=== PATIENT | male | born 1965 | race Caucasian/White ===

== ENCOUNTER 2020-09-03 17:48 | Inpatient (IN) | payer SELFPAY ==
[~2020-09-03] VITALS: Ht 165.1 cm; Wt 66.3 kg
[2020-09-03 17:57] VITALS: Ht 165.1 cm; Wt 66.3 kg
[2020-09-03 19:09] LABS: BASOPHIL % 0.3 % (0.2-1.5); PLATELET COUNT 153 x10^3mcL (152-348)
[2020-09-03 19:35] LABS: CALCIUM 8.9 mg/dL (8.5-10.1); CARBON DIOXIDE 27.5 mmol/L (21-32); CHLORIDE SERUM 103 mmol/L (98-107); CREATININE SERUM 0.9 mg/dL (0.7-1.3); GFR1 > 60 mL/min; GLUCOSE SERUM 104 mg/dL (74-106); POTASSIUM SERUM 3.8 mmol/L (3.5-5.1); SODIUM SERUM 139 mmol/L (136-145)
[2020-09-03 19:42] LABS: ALBUMIN 3.8 g/dL (3.4-5.0); ALKALINE PHOSPHATASE 98 U/L (46-116); ALT/SGPT 36 U/L (16-63); AST/SGOT 21 U/L (15-37); BILIRUBIN TOTAL 0.55 mg/dL (0.20-1.00); LIPASE 104 IU/L (73-393); TOTAL PROTEIN, SERUM 7.3 g/dL (6.4-8.2)
[2020-09-04 00:28] VITALS: BP 134/74
[2020-09-04 06:29] LABS: CALCIUM 8.8 mg/dL (8.5-10.1); CARBON DIOXIDE 27.9 mmol/L (21-32); CHLORIDE SERUM 102 mmol/L (98-107); CREATININE SERUM 0.8 mg/dL (0.7-1.3); GFR1 > 60 mL/min; GLUCOSE SERUM 99 mg/dL (74-106); PHOSPHOROUS 2.9 mg/dL (2.5-4.9); POTASSIUM SERUM 4.3 mmol/L (3.5-5.1); SODIUM SERUM 136 mmol/L (136-145)
[2020-09-04 06:36] VITALS: BP 128/75
[2020-09-04 07:01] LABS: BASOPHIL % 0.4 % (0.2-1.5); PLATELET COUNT 135 x10^3mcL (152-348); RED CELL DISTRIBUTION WIDTH 13.7 % (12.1-16.2)
[2020-09-04 10:20] VITALS: BP 124/79
[2020-09-04 12:08] VITALS: BP 140/91
[2020-09-04 14:11] VITALS: BP 140/91
[2020-09-04] MEDS ORDERED: APAP/HYDROCODON1 T13 PO (14:35)
[2020-09-04 16:42] VITALS: BP 144/88
== END 2020-09-04 17:00 | disposition home or self-care (01) | DRG 343 ==
LOC: ED 17:48 → MU 21:40
PROVIDERS: Emergency Medicine; Surgery; ADMIT Internal Medicine; ATTEND Internal Medicine
PROC: 0DTJ4ZZ Resection of Appendix, Percutaneous Endoscopic Approach (ICD-10-PCS; principal; 2020-09-04 07:30)
DX: K35.80 Unspecified acute appendicitis (principal); Z20.822 Contact with and (suspected) exposure to COVID-19; I10 Essential (primary) hypertension; Z79.899 Other long term (current) drug therapy; Z79.891 Long term (current) use of opiate analgesic; Z79.01 Long term (current) use of anticoagulants
CPT/HCPCS: G0378; J0295; J0690; J2001; J2175; J2270; J2405; J3010; J3490; J7030